=== PATIENT | male | born 1980 | race Caucasian/White ===

== ENCOUNTER 2018-04-14 13:47 | Emergency (ER) | payer OTHER ==
[~2018-04-14] VITALS: Ht 185.4 cm; Wt 83.9 kg
[~2018-04-14 13:47] MED LIST: CYCL10 PO; IBUP600 PO; LORA1 SL; Norco 10-325 T1 EACH PO; OXYC1TAB11 PO; PROM25 PO; Percocet 5-3251 EACH PO; SERT100 PO; UNKNOWN ABX PO; Xanax1 MG PO; Zoloft50 MG PO
[2018-04-14] MEDS ORDERED: MIRT15 PO (13:59)
[2018-04-14] MEDS ORDERED: IBUP800 PO (16:08)
== END 2018-04-14 16:11 | disposition home or self-care (01) ==
LOC: ER 13:47
DX: S50.12XA Contusion of left forearm, initial encounter (principal); F32.9 Major depressive disorder, single episode, unspecified; F41.9 Anxiety disorder, unspecified; F17.220 Nicotine dependence, chewing tobacco, uncomplicated; Z88.5 Allergy status to narcotic agent; Z79.899 Other long term (current) drug therapy; W23.0XXA Caught, crushed, jammed, or pinched between moving objects, initial encounter
CPT/HCPCS: 73090; 99283-25

== ENCOUNTER 2018-09-09 16:11 | Emergency (ER) | payer OTHER ==
[~2018-09-09] VITALS: Ht 185.4 cm; Wt 93.0 kg
[~2018-09-09 16:11] MED LIST changes: +IBUP800 PO; +MIRT15 PO
[2018-09-09] MEDS ORDERED: MIRT15 PO (18:24)
== END 2018-09-09 18:33 | disposition home or self-care (01) ==
LOC: ER 16:11
DX: Z76.0 Encounter for issue of repeat prescription (principal); F41.9 Anxiety disorder, unspecified; F32.9 Major depressive disorder, single episode, unspecified; Z88.6 Allergy status to analgesic agent; F17.209 Nicotine dependence, unspecified, with unspecified nicotine-induced disorders